=== PATIENT | male | born 1965 | race Caucasian/White ===

== ENCOUNTER 2025-05-05 18:36 | Inpatient (IN) | payer OTHER ==
[~2025-05-05] VITALS: Ht 205.7 cm; Wt 85.0 kg
[2025-05-05] MEDS ORDERED: haloperidol lactate 5mg/ml inj IM PRN (18:55)
[2025-05-05 19:06] LABS: MEAN PLATELET VOLUME 7.3 FL (7.4-10.4); RED CELL DISTRIBUTION WIDTH 14.3 % (11.5-14.5)
[2025-05-05 19:15] LABS: CREATININE 0.81 MG/DL (0.60-1.10); TOTAL CARBON DIOXIDE 23.2 MMOL/L (24-32); eCRCL 106 ML/MIN; eGFR > 90 ML/MIN
[2025-05-05 19:17] LABS: LEUKOCYTE ESTERASE ,URINE NEGATIVE (Neg); NITRITES, URINE NEGATIVE (Neg); OCCULT BLOOD,URINE SMALL (Neg)
[2025-05-05 19:20] LABS: UA COLLECTION TYPE CLN CATCH MIDSTREAM
--- NOTE | 2025-05-05 19:28 | Physician Documentation ---
History of Present Illness ~ Chief Complaint: ETOH Stated Complaint: TRANSFER Time Seen by MD: 19:00 Mode of Arrival: EMS HPI Patient presents to the emergency room sent from [facility] for alcohol withdrawal. Patient presented to their emergency room for evaluation of blacking out and musculoskeletal pain from falling off a ladder a proximally a week ago. Patient began having DTs or in his visit at the emergency room to the point where he needed to be admitted and that has seemed that his withdrawal symptoms were escalating to the point that he had not feel that he would be safe at their facility therefore sent to our facility. Tetanus within 5 years?: Yes Medication Reconciliation Allergies: Coded Allergies: naproxen (Verified Allergy, Mild, ITCHING, 05/05/25) Review of Systems ROS All review of systems negative except as per HPI Physical Exam Vital Signs: Temperature: 98.2, Source: Oral, Heart Rate: 110, Respiratory Rate: 18, BP: 187/100, Pulse Oximetry: 99, Weight: 85.000 Physical Exam General: Patient is sleeping comfortably, arousable in no acute distress. No tremors Head: Normocephalic and atraumatic. Eyes: Conjunctival normal. EOMI. PERRL. ENT: Mucous membranes moist. Neck: Supple, trachea is midline. Chest: Clear to auscultation bilaterally without rales, rhonchi, or wheezes. There is no accessory muscle use or retractions. Cardiac: Heart rate 98 and regular without murmurs, gallops, or rubs. Abd: Soft, nondistended, nontender, with normoactive bowel sounds. No guarding, rebound, or rigidity. Progress Results/Orders Results/Orders Orders - WILMER SPANGLER MD Severe Alcohol Withdrawl Reflx (05/05/25 ) Lorazepam Inj (Ativan Inj) (05/05/25 18:55) Lorazepam Inj (Ativan Inj) (05/05/25 18:55) Haloperidol Lact. (Haldol) (05/05/25 18:55) * Withdrawal Tx/Call If:* (05/05/25 18:51) * Implement/Maintain Seizure P (05/05/25 18:51) Director Motion Picture (05/05/25 18:51) Ua W/Microscopic, Cult If Ind (05/05/25 18:58) Completed Orders - WILMER SPANGLER MD Cbc/Diff (05/05/25 18:42) BMP (05/05/25 18:42) Lipase (05/05/25 18:42) CMP (05/05/25 18:42) Vital Signs 05/05/25 05/05/25 18:42 18:47 Temp 98.2 Pulse 110 Resp 18 18 B/P (MAP) 187/100 Pulse Ox 99 Laboratory Tests Test 05/05/25 18:47 05/05/25 18:58 White Blood Count 6.5 Red Blood Count 4.79 Hemoglobin 14.3 Hematocrit 41.2 L Mean Corpuscular Volume 86.0 Mean Corpuscular Hemoglobin 29.9 Mean Corpuscular Hemoglobin Concent 34.8 Red Cell Distribution Width 14.3 Platelet Count 175 Mean Platelet Volume 7.3 L Neutrophils (%) (Auto) 73.3 Lymphocytes (%) (Auto) 20.4 L Monocytes (%) (Auto) 5.4 Eosinophils (%) (Auto) 0.1 Basophils (%) (Auto) 0.8 Neutrophils # (Auto) 4.8 Lymphocytes # (Auto) 1.3 Monocytes # (Auto) 0.4 Eosinophils # (Auto) 0.0 Basophils # (Auto) 0.1 CBC Comment Sodium Level 134 L Potassium Level 4.1 Chloride Level 101 Carbon Dioxide Level 23.2 L Anion Gap 10 Blood Urea Nitrogen 9 Creatinine 0.81 Estimated GFR/1.73 m2 > 90 BUN/Creatinine Ratio 11.1 Glucose Level 88 Calcium Level 8.1 L Total Bilirubin 0.5 Aspartate Amino Transf (AST/SGOT) 49 H Alanine Aminotransferase (ALT/SGPT) 45 Alkaline Phosphatase 84 Total Protein 7.4 Albumin 3.9 Globulin 3.5 Albumin/Globulin Ratio 1.1 Lipase 24 Chemistry Comments Urine Specimen Description Cln catch midstream Urine Color Straw Urine Clarity Clear Urine pH 6.0 Urine Specific [place] <=1.005 Urine Protein Negative Urine Glucose (UA) Negative Urine Ketones Negative Urine Occult Blood Small Urine Nitrite Negative Urine Bilirubin Negative Urine Urobilinogen 0.2 Urine Leukocyte Esterase Negative Volume Urine Centrifuged 10 ml Urine Comment Medical Decision Making Findings Patient presented to the emergency room for alcohol withdrawal. Symptoms are controlled at this time and he had not feel he requires ICU admission. Differential Dx:Considerations: Include: Intoxication-Alcohol, Intoxication- Other drug, Personality disorder, Substance abuse disorder, Closed head injury Departure Admitted to Inpatient Unit: yes, to hospitalist Impression: Primary Impression: Alcohol withdrawal syndrome Condition: Guarded Referrals: NO PRIMARY CARE PROVIDER (PCP) Critical Care Note Total Time (mins): 45 Critical Care Note The very real possibility of a deterioration of this patient's condition required the highest level of my preparedness for sudden, emergent intervention. I provided critical care services, which included medication orders, frequent reevaluations of the patient's condition and response to treatment, ordering and reviewing test results, and discussing the case with various consultants. Excludes time spent performing separately billable procedures. The critical care time associated with the care of the patient was 45 minutes not counting procedures Signature Scribe Signature: No scribe Attestation: The note accurately reflects work and decisions made by me.Wilmer Spangler MD 05/05/25 19:28 WILMER SPANGLER MD May 05, 2025 19:28
[2025-05-05 19:46] LABS: SQUAMOUS EPITHELIAL CELL,UR NONE SEEN /LPF (FEW)
[2025-05-05] MEDS ORDERED: ondansetron/PF 4mg/2ml inj IV PRN (19:50)
[2025-05-05] MEDS ORDERED: magnesium sulf-water 4G/100mL 100 ML IV PRN (19:50)
[2025-05-05] MEDS ORDERED: potassium Cl 40MEQ/1/2NS 520ml 520 ML IV PRN (19:50)
[2025-05-05] MEDS ORDERED: magnesium sulf-water 2g/50mL 50 ML IV PRN (19:50)
[2025-05-05] MEDS ORDERED: mag hydrox/Alum hydrox/simeth 30ml oral suspension PO PRN (19:50)
[2025-05-05] MEDS ORDERED: magnesium hydroxide 30ml (MOM) UD suspension PO PRN (19:50)
[2025-05-05] MEDS ORDERED: magnesium Cl slow-release 64mg tablet PO PRN (19:50)
[2025-05-05] MEDS ORDERED: potassium Cl 20 mEq SR tablet PO PRN (19:50)
[2025-05-05] MEDS: docusate sod 100mg capsule PO SCH (20:00)
[2025-05-05] MEDS: K and/or MAG REPLACEMENT MC SCH (20:00)
[2025-05-05] MEDS: heparin, porcine 5000 units/ml vial SQ SCH (20:00)
[2025-05-05 20:01] LABS: ETHANOL 35 MG/DL (<10)
[2025-05-05] MEDS ORDERED: TAMSULOSIN (20:06)
[2025-05-05] MEDS ORDERED: METO25TA6 PO (20:06)
[2025-05-05] MEDS ORDERED: AMLO2.5T5 PO (20:06)
[2025-05-05] MEDS ORDERED: ATOR-2 PO (20:06)
[2025-05-05 20:14] LABS: URINE AMPHETAMINE SCREEN NEGATIVE (Neg); URINE BARBITUATE SCREEN NEGATIVE (Neg); URINE BENZODIAZEPINES SCREEN NEGATIVE (Neg); URINE CANNABINOID SCREEN NEGATIVE (Neg); URINE COCAINE SCREEN NEGATIVE (Neg); URINE METHADONE SCREEN NEGATIVE (Neg); URINE OPIATE SCREEN NEGATIVE (Neg); URINE PHENCYCLIDINE SCREEN NEGATIVE (Neg)
--- NOTE | 2025-05-05 20:56 | ELECTROCARDIOGRAPH REPORT ---
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
--- NOTE | 2025-05-05 21:01 | HISTORY AND PHYSICAL-Residence ---
History & Physical Providers to CC Resident Creating Document: AMY OMALLEY RES ~ History of Present Illness Reason for Admit\Complaint: Alcohol withdrawal History of Present Illness This is a 59-year-old male with past medical history of hypertension, CAD status post PTCA who was transferred from [facility] in view of alcohol withdrawal. He gives history of binge alcohol consumption, 30 beers a day since last 1 week. He was sober for 5 years before this episode and relapsed 2 months ago, he was again sober for 1 month before this episode. He complains of feeling shaky since yesterday. He also gives history of falls 6-7 times in the past 1 week which was preceded by dizziness and lightheadedness while he was drunk. No history of chest pain, palpitation, weakness before the fall. No history of seizure-like activity, hallucinations. He also complains of bitemporal bandlike headache, /, nonradiating. Allergies: Coded Allergies: naproxen (Verified Allergy, Mild, ITCHING, 05/05/25) Home Medications Home Medications Active Reported [Tamsulosin] 0.4 Cap Metoprolol Tartrate 25 Mg Tablet 1 Tab PO DAILY Atorvastatin Calcium 80 Mg Tablet 1 Tab PO DAILY Amlodipine Besylate 2.5 Mg Tablet 1 Tab PO DAILY Past Medical History Past Medical History Hypertension CAD status post PTCA Past Surgical History Surgical History Comment Hernioplasty for left-sided inguinal hernia PTCA in 2013 Past Social History Smoking: Quit greater than 1 year (Quit smoking more than 10 years ago. Used to smoke 1 pack of cigarettes a day before 10 years.) Alcohol Use: Abuse (Relapsed after 5 years. 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[employer]) Domestic Violence: Neg ROS Constitutional: Reports: weakness Eyes: Reports: no symptoms reported Respiratory: Reports: no symptoms reported Cardiovascular: Reports: no symptoms reported Gastrointestinal: Reports: no symptoms reported, abdominal pain Genitourinary: Reports: no symptoms reported Male Genitalia: Reports: no symptoms reported Neurological: Reports: no symptoms reported Musculoskeletal: Reports: no symptoms reported Integumentary: Reports: no symptoms reported Allergic/Immunologic: Reports: no symptoms reported Hematologic/Lymphatic: Reports: no symptoms reported Endocrine: Reports: no symptoms reported Psychiatric: Reports: no symptoms reported Exam Vitals: Vital Signs Date Time Temp Pulse Resp B/P (MAP) Pulse Ox O2 Delivery O2 Flow Rate FiO2 05/05/25 20:24 103 16 171/99 (123) 97 0 05/05/25 18:42 98.2 General: General: Drowsy, well oriented, not confused, not agitated, not in acute distress, well cooperated during the physical. HEENT: Conjunctive are pink, sclerae clear, no icterus, pupil is equal in both sides, reactive to light, no ear discharge, no pharyngeal erythema or an edema. Neck: Supple, no JVD, no lymphadenopathy and thyromegaly. Chest: Equal air entry on both lungs, no added sounds, no wheeze. Cardiovascular: S1-S2 regular sinus rhythm and, regular rate, no gallops, no rubs, no murmurs Abdomen: No visible peristalsis, Bowel sounds present on auscultation, soft, nontender, no guarding, no rigidity Extremities: No obvious deformities, no pitting edema bilaterally, capillary refill intact, peripheral pulsations are intact on both sides, tremors in bilateral hand even at rest. Central Nervous System: No focal neurological deficits, no motor or sensory weakness in all 4 extremities, could move all 4 extremities, 2+ deep tendon reflexes, negative Babinski. Musculoskeletal: No joint swelling, deformities, inflammations, and no scoliosis and back tenderness Skin: Warm and dry. Diagnostic Data Last Recorded Lab Results: 05/05/25184605/05/251846 Counseling Services Smoking & Tobacco Cessation: N/A Advance Care Planning Advanced Care plannin - 30 Minutes (Full code) Additional Plan Assessment: This is a 59-year-old male with past medical history of hypertension, CAD status post PTCA who was transferred [facility] from in view of alcohol withdrawal. Plan: Severe alcohol withdrawal CIWA score 19 No seizure-like activity, no hallucination Used to drink 30 beers a a day Vitals: Heart rate 110s, blood pressure 180/100 Liver function tests in the normal range, Lipase 24, sodium 134 potassium 4.1 Urine tox negative , ethyl alcohol level 35 Patient on severe alcohol withdrawal protocol Ordered social service and substance abuse consultation. Ordered PT INR, monitor vitals. Multiple ground level falls Preceded by dizziness when he was intoxicated Ordered CT head to rule out bleed, x-ray pelvis to rule out fracture Patient is able to bear full weight on his limbs Pain management with [facility] Primary Hypertension Coronary artery disease status post PTCA Missed a few doses of his antihypertensive medication in the last week Blood pressure 180/100, heart rate 110s Plan: Ordered EKG and echo rule out alcohol-induced cardiomyopathy Continue his home medication amlodipine 2.5 mg p.o. daily, metoprolol 25 mg p.o. daily, atorvastatin 80 mg p.o. daily. BPH Continue his home medication tamsulosin 0.4 mg p.o. daily Code status: Full code DVT prophylaxis: SCDs, heparin 5000 units q.8h Analgesia/sedation: Morphine/[facility] Line/tube: PIV GI prophylaxis: Protonix Nutrition: Heart healthy PT: Ordered. Prognosis: Guarded Disposition: Admit to PCU/telemetry, look out for alcohol-induced seizures, ordered social service and substance abuse navigator Amy Omalley MD PGY1, Internal Medicine [facility] Date of Service: May 05, 2025 Billing Provider: ANTHONY RIVERA MD, SHIVANI, RES May 05, 2025 21:01
[2025-05-05 21:03] LABS: CHOL/HDL RATIO 1.8 (0.00-4.99); LDL CHOLESTEROL 57 MG/DL (50-100)
--- NOTE | 2025-05-05 21:07 | RADIOLOGY REPORT ---
EXAM: CT CT HEAD INDICATION: Falls TECHNIQUE: CT images of the head were obtained without administration of IV contrast. CT scans at this facility use dose modulation, iterative reconstruction, and/or weight based dosing when appropriate to reduce radiation dose to as low as reasonably achievable. COMPARISON: None FINDINGS: PARENCHYMA: No acute hemorrhage. There is no mass effect, midline shift, or herniation. There is preservation of the barrow white differentiation. Mild scattered hypoattenuation along the periventricular, centrum semiovale, and deep white matter tracts, which are nonspecific however statistically most likely represent chronic microvascular ischemic change. VENTRICLES: No hydrocephalus. EXTRA-AXIAL SPACES: No extra-axial fluid collections. OTHER: The bony structures are intact. Visualized portions of the paranasal sinuses and mastoid air cells are clear. IMPRESSION: 1. No CT evidence of an acute intracranial abnormality. 2. Mild chronic microvascular ischemic change.
--- NOTE | 2025-05-05 21:24 | RADIOLOGY REPORT ---
EXAM: DI PELVIS,LIMITED 1-2 VIEWS INDICATION: Fall TECHNIQUE: 1 views of the pelvis COMPARISON: None FINDINGS/IMPRESSION: No radiographic evidence of an acute osseous abnormality. There is no acute fracture, osseous malalignment, or aggressive focal osseous lesion. Moderate to severe bilateral superior medial hip joint space loss.
[2025-05-05] MEDS: thiamine 100mg/ml 2ml inj. IV SCH (23:04)
[2025-05-05 23:40] VITALS: BP 166/105; PULSE 90; RESP 12; TEMP 98.9; O2SAT 99
[2025-05-06] MEDS: diazepam inj 5 MG/ML inj. IV PRN ×2 (00:21→16:43)
[2025-05-06 02:00] VITALS: BP 162/104; PULSE 94; RESP 19; TEMP 97.8; O2SAT 97
[2025-05-06 02:13] VITALS: RESP 12; O2SAT 99
[2025-05-06 07:01] LABS: MEAN PLATELET VOLUME 7.6 FL (7.4-10.4); RED CELL DISTRIBUTION WIDTH 14.2 % (11.5-14.5)
[2025-05-06 07:10] LABS: INR 1.0 INR
[2025-05-06 07:21] LABS: CREATININE 0.66 MG/DL (0.60-1.10); TOTAL CARBON DIOXIDE 24.8 MMOL/L (24-32); eCRCL 143 ML/MIN; eGFR > 90 ML/MIN
[2025-05-06] MEDS: folic acid 1mg/0.2ml inj IV SCH (08:00)
[2025-05-06] MEDS ORDERED: TAMS-55 PO (10:17)
[2025-05-06] MEDS: pantoprazole 40mg Tablet.DR PO SCH (10:17)
[2025-05-06] MEDS: multivitamins, therapeutics tablet PO SCH (10:18)
[2025-05-06] MEDS: hydrALAZINE 20mg/ml inj. IV PRN (13:34)
--- NOTE | 2025-05-06 17:22 | RADIOLOGY REPORT ---
INDICATION: BACK PAIN TECHNIQUE: 4 views of the thoracic and lumbar spine were obtained. COMPARISON: None FINDINGS: There is no evidence of fracture, subluxation and/or dislocation. Degenerative disc space narrowing at L5-S1. Suggestion of neural foraminal stenosis at L5-S1. The alignment is anatomical. The paravertebral soft tissues were unremarkable. Vascular calcifications of the aorta. IMPRESSION: 1. Of the visualized spine, there is no evidence for fracture or subluxation.
--- NOTE | 2025-05-06 17:27 | PROGRESS NOTE- Residence ---
Progress Note - Resident Providers to CC Resident Creating Document: RAFAEL GOINS, RES ~ Antibiotic Timeout Antibiotic Ordered?: No Subjective This is a 59-year-old male, transferred from [facility], reports that he fell down on Friday on the way to restroom he felt dizzy lightheadedness had chest pain and lost consciousness, he regained consciousness after a few minutes He he said that he had couple of drinks before he lost consciousness but was not drunk He also fell from ladder last week he he went to hospital and he received pain meds and was discharged, however he said that his pain was not controlled and he started drinking which was improving his pain. Patient was little bit confused and drowsy when I went to see him. Objective Vital Signs Date Time Temp Pulse Resp B/P (MAP) Pulse Ox O2 Delivery O2 Flow Rate FiO2 05/06/25 16:43 16 05/06/25 13:34 77 05/06/25 02:13 99 Room Air 05/06/25 02:00 97.8 162/104 (123) 05/05/25 20:24 0 Result Diagram: 05/06/25 0632 05/06/25 0632 General: awake, alert oriented to place, time, and person, confused and drowsy. HEENT: No pallor present, no icterus, moist mucous membranes Neck: No masses and tenderness Resp: Unlabored. Lungs clear to auscultation bilaterally. Chest: Normal expansion. Cardiovascular: Regular Rate and rhythm, normal S1 and S2 without murmur, rub or gallop Abdomen: Soft and non tender in epigastrium, no organomegaly, no guarding and rigidity, bowel sounds present Neuro: No focal weakness in the upper and lower limb muscles, power of the muscles 5/5 bilateral upper and lower extremities, normal reflexes bilaterally. Cranial nerves intact Extremities: No cyanosis,clubbing or edema Musculoskeletal: No joint deformities, no back tenderness. Skin: Warm and Dry. No lesions Psych: Normal affect Coagulation Studies Laboratory Tests Test 05/06/25 06:32 Prothrombin Time 9.9 SECONDS (9.0-12.0) INR International Normalized Ratio 1.0 INR Coagulation Comments Plan Plan Assessment: This is a 59-year-old male with past medical history of hypertension, CAD status post PTCA who was transferred [facility] from in view of alcohol withdrawal. Plan: Severe alcohol withdrawal CIWA score 19 improved CIWA 9 points. No seizure-like activity, no hallucination Used to drink 30 beers a a day Blood pressure 152/92 Liver function test, AST 49 and ALT 45 Lipase 24, sodium 136 potassium 4.1 Urine tox negative , ethyl alcohol level 35. Patient on severe alcohol withdrawal protocol PT 9.9, INR 1.0 Ordered social service and substance abuse consultation. Multiple ground level falls Preceded by dizziness when he was intoxicated Ordered CT head shows IMPRESSION: 1. No CT evidence of an acute intracranial abnormality. 2. Mild chronic microvascular ischemic change. Pelvis X-Ray No radiographic evidence of an acute osseous abnormality. There is no acute fracture, osseous malalignment, or aggressive focal osseous lesion. Moderate to severe bilateral superior medial hip joint space loss. Thoracic spine x ray: there is no evidence for fracture or subluxation Lumar Spine X-Ray: there is no evidence for fracture or subluxation. Patient is able to bear full weight on his limbs Pain management with [facility] Primary Hypertension Coronary artery disease status post PTCA Missed a few doses of his antihypertensive medication in the last week Blood pressure 180/100 bp improved to 153/92. Changed amlodipine from 2.5 to 5 mg, continue metoprolol 25 mg p.o. daily, atorvastatin 80 mg p.o. daily. Echo shows: Overall systolic function is normal. LVEF is 55%. BPH Continue his home medication tamsulosin 0.4 mg p.o. daily Code status: Full code DVT prophylaxis: heparin Analgesia/sedation: Morphine/[facility] Line/tube: PIV GI prophylaxis: Protonix Nutrition: Heart healthy PT: Ordered. Prognosis: Guarded Disposition: Admit to PCU/telemetry, look out for alcohol-induced seizures, Monitor blood pressure and vitals. ordered social service and substance abuse navigator. Rafael Goins PGY1 Internal Medicine Date of Service: May 06, 2025 Billing Provider: ALONDRA FLEMING MD,RAFAEL, RES May 06, 2025 17:27
[2025-05-06 18:00] VITALS: BP 128/80; PULSE 86; RESP 18; TEMP 98; O2SAT 94
[2025-05-06 18:30] VITALS: O2SAT 97
--- NOTE | 2025-05-06 19:18 | CARDIOLOGY REPORT ---
APPROVED REPORT EXAM: Comprehensive 2D, Doppler, and color-flow Echocardiogram. Patient Location: 302 Blood Pressure: 162/104 mmHg Heart Rate: 77 bpm Indications Cardiomyopathy Coronary Artery Disease Stent x 1 (2007 - per patient) Alcohol Withdrawals PIGMENT AND LACQUER MIXER: (Unknown, out of the area per patient) NO Previous ECHO 2D Dimensions LA Diam 2.9 cm IVSd 0.8 (0.7-1.1cm) LVDd 4.7 cm PWd 0.7 (0.7-1.1cm) IVSs 0.9 (0.8-1.2cm) LVDs 3.5 (2.5-4.0cm) PWs 1.2 (0.8-1.2cm) LVOT Diameter 2.17 (1.8-2.4cm) LVEF(%) 51.1 (>50%) IVC 14.26 mm FS (%) 26.0 % SV 51.4 ml CO 3.8 L/min M-Mode Dimensions Left Atrium(MM) 3.70 (2.5-4.0cm) Aortic Root 3.78 (2.2-3.7cm) MV EPSS 0.4 (<0.5cm) Aortic Valve AoV Peak Godwin. 100.8 cm/s AoV VTI 23.0 cm AO Peak GR. 4.1 mmHg AO Mean GR. 3 mmHg LVOT VTI 18.98 cm LVOT Peak Godwin. 94.8 cm/s CARMEN(VTI)/BSA 3.04 cm2/m2 CARMEN (VTI) 3.04 cm2 AI P 1/2 Time 508 ms Mitral Valve MV E Velocity 50.0 cm/s MV Peak Gr. 1 mmHg MV DECEL TIME 204 ms MV A Velocity 82.2 cm/s MV PHT 44 ms E/A Ratio 0.6 MVA (PHT) 5.00 cm2 MV VMax 55.1 cm/s TDI Lateral E' P. V 10.18 cm/s E/Lateral E' 4.9 Tricuspid Valve TR P. Velocity 222 cm/s RAP ESTIMATE 10 mmHg TR Peak Gr. 20 mmHg RVSP 30 mmHg LEFT VENTRICLE Normal LV size and wall thickness. Overall systolic function is normal. LVEF is 55%. RIGHT VENTRICLE RV is normal size and function. ATRIA The left atrium size is normal. AORTIC VALVE Trileaflet AV appears mildly sclerotic without stenosis. Mild insufficiency. MITRAL VALVE Mitral valve leaflets are mildly thickened with mild annular calcification. No stenosis. Trace regurgitation. TRICUSPID VALVE The tricuspid valve is normal in structure with trace regurgitation. PULMONIC VALVE Pulmonic valve is grossly normal in structure with physiologic insufficiency. GREAT VESSELS The aortic root is normal in size. The IVC is normal in size and collapses >50% with inspiration. PERICARDIUM Normal pericardium. No effusion. Other Information Study Quality: Adequate Conclusion Normal LV size and wall thickness. Overall systolic function is normal. LVEF is 55%. RV is normal size and function. The left atrium size is normal. Trileaflet AV appears mildly sclerotic without stenosis. Mild insufficiency. Mitral valve leaflets are mildly thickened with mild annular calcification. No stenosis. Trace regurgitation. The tricuspid valve is normal in structure with trace regurgitation. Pulmonic valve is grossly normal in structure with physiologic insufficiency. Normal pericardium. No effusion.
[2025-05-06 20:00] VITALS: BP_SYST 119; BP_SYST 143; BP_SYST 151; BP_DIAS 53; BP_DIAS 65; BP_DIAS 83; PULSE 104; PULSE 71
[2025-05-06] MEDS: HYDROcodone/acetaminophen 5mg/325mg tablet PO PRN (20:44)
[2025-05-06 22:00] VITALS: BP 119/83; PULSE 104; RESP 21; TEMP 97; O2SAT 96
[2025-05-07] VITALS (9 sets, daily range): BP systolic 105–157; BP diastolic 42–88; PULSE 65–96; RESP 11–18; TEMP 97.1–98; O2SAT 97–99
[2025-05-07] MEDS: normal saline 500ml IV soln 500 ML IV SCH (05:26)
[2025-05-07 07:18] LABS: MEAN PLATELET VOLUME 8.5 FL (7.4-10.4); RED CELL DISTRIBUTION WIDTH 14.2 % (11.5-14.5)
[2025-05-07 07:32] LABS: INR 1.0 INR
[2025-05-07 07:53] LABS: CREATININE 0.88 MG/DL (0.60-1.10); TOTAL CARBON DIOXIDE 24.0 MMOL/L (24-32); eCRCL 107 ML/MIN; eGFR 88 ML/MIN
[2025-05-07] MEDS: normal saline 1000ml 1,000 ML IV ONE (09:31)
[2025-05-07] MEDS: potassium Cl 20 mEq SR tablet PO PRN (09:31)
[2025-05-07] MEDS: HYDROcodone/acetaminophen 10/325mg tab PO PRN (09:34)
[2025-05-07] MEDS: aspirin 81mg, enteric-coated 1 TAB TABLET.DR PO SCH (09:44)
[2025-05-07] MEDS: metoprolol succinate 25mg (24-HOUR) SR. Tablet PO SCH (09:45)
--- NOTE | 2025-05-07 11:52 | VASCULAR REPORT ---
Carotid duplex REASON FOR EXAM: Dizziness A Carotid Duplex Study was performed. TECHNIQUE: Harvey scale, color doppler imaging and spectral analysis were performed. FINDINGS: On harvey scale and color imaging there is mild plaquing seen in both carotid bulbs Velocities are as follows: (measured in cm/S): Right CCA 1 78 Left CCA 129 Right ICA 101 Left ICA 81 Right ICA/CCA 0.56 Left ICA/CCA 0.63 Flow in the vertebral arteries is antegrade. IMPRESSION: 1. No hemodynamically significant stenosis based on NASCET criteria Minimal plaquing seen in both carotid bulbs
--- NOTE | 2025-05-07 14:55 | RADIOLOGY REPORT ---
CLINICAL INDICATION: Syncope. Rule out CVA. COMPARISON: CT CT HEAD on DOS: 05/05/25, CT BRAIN/HEAD W/O CONTRAST on DOS: 05/05/25 TECHNIQUE: Multisequence multiplanar MRI images of the brain were obtained without contrast. FINDINGS: No acute infarct or hemorrhage. No mass or midline shift. Chronic lacunar infarct in the right basal ganglia. Ventricles and sulci are within normal limits. Basal cisterns are patent. Cerebellum, brainstem, and midline structures are within normal limits. Mild mucosal thickening of the paranasal sinuses. Orbits are grossly unremarkable. IMPRESSION: 1. No evidence of acute intracranial abnormality. 2. Nonacute findings as described above.
--- NOTE | 2025-05-07 18:26 | PROGRESS NOTE- Residence ---
Progress Note - Resident Providers to CC Resident Creating Document: CLAIRE WOODS RES ~ Antibiotic Timeout Antibiotic Ordered?: No Subjective Patient seen and examined today. He feels better today. He is walking to the restroom but feels dizzy. Mentions that he feels dizzy usually when he walks but also when he sits. Had a fall few days back but mentioned that he was not drunk back then. Did not have any falls before that but was dizzy Objective Vital Signs Date Time Temp Pulse Resp B/P (MAP) Pulse Ox O2 Delivery O2 Flow Rate FiO2 05/07/25 16:10 97.6 65 16 105/72 (83) 99 Room Air 05/05/25 20:24 0 Result Diagram: 05/07/2520 05/07/25 0620 General: Alert and oriented x 4 HEENT: Normocephalic and atraumatic. Pupils equal round and reactive to light and accommodation. Extraocular movements intact. Oral and nasal mucosa moist Neck: Trachea is in midline. No masses or JVD Lungs: Bilateral normal breath sounds. No crackles, rhonchi or wheezes Heart: Regular rate and rhythm. S1-S2 normal. No rubs or murmurs Abdomen: Soft, nontender and nondistended. 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 Not able to elevate his left lower extremity due to back pain Skin: Warm and dry Coagulation Studies Laboratory Tests Test 05/07/25 06:20 Prothrombin Time 9.8 SECONDS (9.0-12.0) INR International Normalized Ratio 1.0 INR Coagulation Comments Assessment Assessment This is a 59-year-old male with past medical history of hypertension, CAD status post PTCA who was transferred [facility] from in view of alcohol withdrawal. Plan Plan Severe alcohol withdrawal CIWA score 19 improved to CIWA1 points. Continue alcohol withdrawal protocol Continue thiamine, folic acid, multivitamin Received 25 mg IV diazepam in the last 24 hours Dizziness and multiple falls and sometimes losing consciousness Chronic lacunar infarct in the right basal ganglia Positive orthostatic vitals Given 1 L normal saline bolus. Started normal saline at 100 cc/hour. Will recheck orthostatics in a.m. and we will start midodrine if remains positive Head CT showed no evidence of acute intracranial abnormalities. Mild chronic microvascular ischemic change Bilateral carotid ultrasound showed no significant stenosis Head MRI showed no acute intracranial abnormality. Chronic lacunar infarct in right basal ganglia Echocardiogram showed LVEF 55% with no other significant wall or valvular abnormalities Continue aspirin 81 mg p.o. daily. LDL 57. Started Lipitor 40 mg p.o. daily Pending EEG Back pain after the fall Pelvis x-ray showed no acute abnormality. Moderate to severe bilateral superior medial hip joint space loss Thoracic and lumbar Lumbar spine x-ray showed no acute fracture or subluxation. Degenerative disc space narrowing at L5-S1 suggesting of neural foraminal stenosis at L5-S1. Vascular calcifications of the aorta Pain controlled with [place] PT recommended home independent Coronary artery disease status post PTCA Continue aspirin 81 mg p.o. daily and metoprolol succinate 25 mg p.o. daily Started Lipitor 40 mg p.o. daily Hypertension Mild hyponatremia Continue amlodipine 5 mg p.o. daily Continue normal saline at 100 cc/hour Hypokalemia Continue replacement as per protocol Magnesium within normal limits BPH Continue his home medication tamsulosin 0.4 mg p.o. daily Patient wants to continue to use tamsulosin and stated that he finds it difficult to initiate urination if he has stopped taking tamsulosin for 4-5 days Code status: Full code DVT prophylaxis: heparin 5000 units subcu q.12h Analgesia/sedation: Morphine/[place] p.r.n. Line/tube: PIV GI prophylaxis: Protonix Nutrition: Heart healthy PT: Ordered. Prognosis: Guarded Disposition: Possible discharge in a.m.. Follow up with the EEG. Check orthostatic vitals in a.m. and start midodrine if still positive Date of Service: May 07, 2025 Billing Provider: ALONDRA FLEMING MD, MANOJNA RES May 07, 2025 18:26
[2025-05-08 02:00] VITALS: BP 133/77; PULSE 74; RESP 16; TEMP 97.8; O2SAT 97
[2025-05-08 06:42] LABS: MEAN PLATELET VOLUME 7.9 FL (7.4-10.4); RED CELL DISTRIBUTION WIDTH 14.5 % (11.5-14.5)
[2025-05-08 06:48] LABS: INR 0.9 INR
[2025-05-08 07:02] LABS: CREATININE 0.95 MG/DL (0.60-1.10); TOTAL CARBON DIOXIDE 27.5 MMOL/L (24-32); eCRCL 99 ML/MIN; eGFR 81 ML/MIN
[2025-05-08 07:09] VITALS: BP 148/83; PULSE 82; RESP 16; TEMP 97.7; O2SAT 98
[2025-05-08 08:00] VITALS: RESP 16
[2025-05-08 08:10] VITALS: RESP 16; O2SAT 99
--- NOTE | 2025-05-08 09:15 | PROCEDURE NOTE ---
Procedure Note Providers to CC ~ Interpretation: [place] EEG Note # Demographics Type of EEG Read: - Routine EEG - video Patient Location: - Inpatient - STAT read requested First Name: Yuan Last Name: Monty Date of : 1965 Age: 59 Gender: Male Facility: [facility] Time of Initial Page (): 05/08/2025 08:13 First Contact with Site (): 05/08/2025 08:21 # EEG Interpretation Start Time of EEG Read (): 05/08/2025 08:33 Stop Time of EEG Read (): 05/08/2025 08:54 Duration: 0h 21m Technical Details: - The EEG electrodes were placed using the standard International 10-20 system of electrode placement. Video and an accessory EKG lead were used during the course of this study. - This study was recorded using the dotHIV EEG software Indication: - seizure # Description Photic Stimulation: Performed Hyperventilation: performed Phases Captured: - awake - drowsy Symmetry: symmetric Posterior Dominant Rhythm: - present, attenuates on eye opening 9 Hz Predominant Frequencies: - non-posterior dominant alpha (8-12 Hz) - abundant (50-89%) Superimposed Frequencies: - beta (>15 Hz) - frequent (10-49%) Amplitude: normal Reactivity: yes Variability: yes Continuity: continuous # Abnormalities Stimulation: - photic stimulation does NOT cause abnormalities - hyperventilation does NOT cause abnormalities Epileptiform Abnormalities: - NOT present Focal Slowing: no Seizure: - NOT present # Impression Impression: abnormal 1. Excess Beta # Clinical Correlation Clinical Correlation: Excess beta is a non-specific finding but may be seen in the setting of Benzodiazepine or Barbiturate use # Demographics First Name: Yuan Last Name: Monty Facility: [facility] VIVIANE GONZALES MD May 08, 2025 09:15
[2025-05-08 09:21] VITALS: BP_SYST 111; BP_SYST 131; BP_SYST 135; BP_DIAS 68; BP_DIAS 77; PULSE 82; PULSE 86
[2025-05-08] MEDS ORDERED: THIA50TA10 PO (10:01)
[2025-05-08] MEDS ORDERED: FOLI0.4T3 PO (10:01)
[2025-05-08] MEDS ORDERED: METO-395 PO (10:01)
[2025-05-08] MEDS ORDERED: AMLO2.5T5 PO (10:01)
[2025-05-08] MEDS ORDERED: PANT40TA54 PO (10:01)
[2025-05-08] MEDS ORDERED: MULT-25 PO (10:01)
[2025-05-08] MEDS ORDERED: ASPI-1071 PO (10:01)
[2025-05-08 11:00] VITALS: BP_SYST 136; BP_SYST 139; BP_DIAS 79; BP_DIAS 82; PULSE 78; PULSE 79; RESP 14; RESP 79; TEMP 97.2; TEMP 97.3; O2SAT 95; O2SAT 99
--- NOTE | 2025-05-08 20:27 | DISCHARGE SUMMARY-Residence ---
Discharge Summary Providers to CC Resident Creating Document: CLAIRE WOODS RES ~ Discharge Summary Admission Diagnosis: ALCOHOL WITHDRAWAL Hospital Course DATE OF ADMISSION: 05/05/2025 DATE OF DISCHARGE: 05/08/2025 As in HPI: This is a 59-year-old male with past medical history of hypertension, CAD status post PTCA who was transferred from [facility] in view of alcohol withdrawal. He gives history of binge alcohol consumption, 30 beers a day since last 1 week. He was sober for 5 years before this episode and relapsed 2 months ago, he was again sober for 1 month before this episode. He complains of feeling shaky since yesterday. He also gives history of falls 6-7 times in the past 1 week which was preceded by dizziness and lightheadedness while he was drunk. No history of chest pain, palpitation, weakness before the fall. No history of seizure-like activity, hallucinations. He also complains of bitemporal bandlike headache, 5/10, nonradiating. During the hospital stay, he was treated for severe alcohol withdrawal with thiamine, folic acid, Valium p.r.n.. His CIWA score came down to one. He was initially positive for orthostatic vitals but recovered after good IV hydration. His repeat orthostatics were negative at this morning. His multiple falls recently likely due to alcohol abuse and positive orthostatics. Advised him to keep himself well hydrated with a about at least 2 L of fluid per day. He wanted to continue to take tamsulosin as he feels that he will not be able to urinate if he does not take the medication for three days. So, continue tamsulosin. He also complains of back pain after the fall and requested for a return to work form. I signed a return to work form - return to modified work on 05/12/2025. 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 His head CT also showed chronic lacunar infarct and so started on aspirin and also Lipitor 40 mg p.o. daily. He has coronary artery stenting was few years back. Physical therapy recommended home independent. Today, he is stable for discharge back to home. Stated that he wants to live in his truck for few days and then we will go back to his house in [place]. General: Alert and oriented x 4 HEENT: Normocephalic and atraumatic. Pupils equal round and reactive to light and accommodation. Extraocular movements intact. Oral and nasal mucosa moist Neck: Trachea is in midline. No masses or JVD Lungs: Bilateral normal breath sounds. No crackles, rhonchi or wheezes Heart: Regular rate and rhythm. S1-S2 normal. No rubs or murmurs Abdomen: Soft, nontender and nondistended. 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 Not able to elevate his left lower extremity due to back pain Skin: Warm and dry Discharge instructions: Please follow up with the PCP within a week after discharge. Strongly recommend to avoid alcohol. Please come back to the ER if symptoms recur. Check your blood pressure twice daily and hold metoprolol as in the past systolic blood pressure less than 100 mmHg or heart rate less than 60 mmHg. Please keep yourself well hydrated-at least 2 L of water per day. Hold tamsulosin if systolic blood pressure less than 100 mmHg. Discharge Diagnosis\Comment: Severe alcohol withdrawal Dizziness and falls likely due to positive orthostatic hypotension Chronic lacunar infarct in the right basal ganglia Back pain after the fall but no acute fracture Coronary artery disease-s/p PTCA Hypotension Mild hyponatremia Hypokalemia BPH Operations\Procedures: None Consultants: None Complications: None Condition on DC: Stable New Medications: Folic Acid (FOLIC ACID tablet) 0.4 Mg Tablet 1 TAB PO DAILY for 30 Days, #30 TAB 0 Refills Thiamine HCl (Vitamin B-1) 50 Mg Tablet 2 TAB PO DAILY for 30 Days, #60 TAB 0 Refills Aspirin (Ecotrin*) 81 Mg Tablet.dr 1 TAB PO DAILY for 30 Days, #30 TAB.SR Metoprolol Succinate (Metoprolol Succinate) 25 Mg Tab.sr.24h 25 MG PO DAILY for 30 Days, #30 TAB.SR Multivitamin with Folic Acid (Thera Tablet) 400 Mcg Tablet 1 EACH PO Q24H for 30 Days, #30 TAB Pantoprazole Sodium (Pantoprazole Sodium) 40 Mg Tablet.dr 40 MG PO BKF for 30 Days, #30 TAB.SR Changed Medications: Amlodipine Besylate (Amlodipine Besylate) 2.5 Mg Tablet 2 TAB PO DAILY for 30 Days, #60 TAB (Changed from: 1 TAB) Continued Medications: Atorvastatin Calcium (Atorvastatin Calcium) 80 Mg Tablet 1 TAB PO DAILY Tamsulosin Hcl* (Flomax*) 0.4 Mg Cap.sr.24h 1 CAP PO DAILY for 30 Days, #30 CAP Discontinued Medications: Metoprolol Tartrate (Metoprolol Tartrate) 25 Mg Tablet 1 TAB PO DAILY Discharge Summary: As above *Problems/Diagnosis: (1) Alcohol withdrawal syndrome Status: Acute Total Time Spent on D/C: > 30 Minutes Date of Service: May 08, 2025 Billing Provider[facility] May 08, 2025 20:21
== END 2025-05-08 13:20 | disposition home or self-care (01) | DRG 312 ==
LOC: ER 18:38 → PCU 3S 19:50
PROVIDERS: ADMIT Internal Medicine Pulmonary Disease; ATTEND Family Medicine
PROC: 4A00X4Z Measurement of Central Nervous Electrical Activity, External Approach (ICD-10-PCS; principal; 2025-05-08)
DX: I95.1 Orthostatic hypotension (principal); E87.1 Hypo-osmolality and hyponatremia; F10.139 Alcohol abuse with withdrawal, unspecified; Y90.1 Blood alcohol level of 20-39 mg/100 ml; M54.9 Dorsalgia, unspecified; I25.10 Atherosclerotic heart disease of native coronary artery without angina pectoris; E87.6 Hypokalemia; N40.0 Benign prostatic hyperplasia without lower urinary tract symptoms; I70.0 Atherosclerosis of aorta; I10 Essential (primary) hypertension; W11.XXXA Fall on and from ladder, initial encounter; Y93.89 Activity, other specified; Y92.89 Other specified places as the place of occurrence of the external cause; Y99.8 Other external cause status; Z86.73 Personal history of transient ischemic attack (TIA), and cerebral infarction without residual deficits; Z95.5 Presence of coronary angioplasty implant and graft; Z88.8 Allergy status to other drugs, medicaments and biological substances; Z79.899 Other long term (current) drug therapy; Z87.891 Personal history of nicotine dependence
CPT/HCPCS: 36415; 70450; 70551; 72074; 72110; 72170; 80053; 80061; 80305; 80320; 81001; 82150; 82607; 82948; 83036; 83690; 83735; 84443; 85025; 85610; 87081; 93005; 93306; 93880; 95816; 96374; 97116; 97161; 99291; G0378; J0360; J1644; J2060; J2470; J3360; J3411; J3490; J7030; J7040

== ENCOUNTER 2025-05-13 10:18 | Inpatient (IN) | payer OTHER ==
[~2025-05-13] VITALS: Ht 175.3 cm; Wt 64.0 kg
[~2025-05-13 10:18] MED LIST: AMLO2.5T5 PO; ASPI-1071 PO; ATOR-2 PO; FOLI0.4T3 PO; METO-395 PO; MULT-25 PO; PANT40TA54 PO; TAMS-55 PO; THIA50TA10 PO
[2025-05-13] MEDS ORDERED: AMLO2.5T2 PO (11:05)
[2025-05-13] MEDS ORDERED: MULT-25 PO (11:05)
[2025-05-13] MEDS ORDERED: FOLI0.4T6 PO (11:05)
[2025-05-13] MEDS ORDERED: THIA50TA10 PO (11:05)
[2025-05-13] MEDS ORDERED: ASPI-1265 PO (11:05)
[2025-05-13] MEDS ORDERED: METO-539 PO (11:05)
[2025-05-13 11:06] LABS: MEAN PLATELET VOLUME 7.1 FL (7.4-10.4)
[2025-05-13 11:08] LABS: RED CELL DISTRIBUTION WIDTH 15.3 % (11.5-14.5)
[2025-05-13 11:12] LABS: LEUKOCYTE ESTERASE ,URINE NEGATIVE (Neg); NITRITES, URINE NEGATIVE (Neg); OCCULT BLOOD,URINE SMALL (Neg)
[2025-05-13 11:14] LABS: UA COLLECTION TYPE CLN CATCH MIDSTREAM
[2025-05-13 11:20] LABS: CREATININE 0.70 MG/DL (0.60-1.10); TOTAL CARBON DIOXIDE 22.6 MMOL/L (24-32); eCRCL 102 ML/MIN; eGFR > 90 ML/MIN
[2025-05-13 11:23] LABS: MUCUS STRANDS NONE SEEN /LPF (Neg); SQUAMOUS EPITHELIAL CELL,UR FEW /LPF (FEW)
[2025-05-13 11:25] LABS: URINE AMPHETAMINE SCREEN NEGATIVE (Neg); URINE BARBITUATE SCREEN NEGATIVE (Neg); URINE BENZODIAZEPINES SCREEN POSITIVE (Neg); URINE CANNABINOID SCREEN NEGATIVE (Neg); URINE COCAINE SCREEN NEGATIVE (Neg); URINE METHADONE SCREEN NEGATIVE (Neg); URINE OPIATE SCREEN NEGATIVE (Neg); URINE PHENCYCLIDINE SCREEN NEGATIVE (Neg)
--- NOTE | 2025-05-13 11:27 | Physician Documentation ---
History of Present Illness General Chief Complaint: ETOH Stated Complaint: ETOH WITHDRAWAL Time Seen by MD: 11:12 Primary Medical Doctor: TIARA AT [facility] IN [place] Mode of Arrival: EMS History of Present Illness Initial Comments The patient is a 59-year-old male with a history of alcohol use disorder whose last drink was yesterday morning. He is transferred here from [facility] for treatment of his alcohol withdrawal. He has no history of s eizures. His CIWA score on arrival is 17. Medication Reconciliation Allergies: Coded Allergies: naproxen (Verified Allergy, Mild, ITCHING, 05/05/25) fluoride (Verified Allergy, Unknown, VOMIT, 05/13/25) Uncoded Allergies: PEANUTS (Allergy, Unknown, ANAPHALAXIS, 05/13/25) Scheduled Amlodipine* (Norvasc*), 2 TAB PO DAILY, (Reported) Aspirin (Aspirin), 1 TAB PO DAILY, (Reported) Atorvastatin Calcium (Atorvastatin Calcium), 1 TAB PO DAILY, (Reported) Folic Acid* (Folic Acid*), 1 TAB PO DAILY, (Reported) Metoprolol Succinate* (Toprol Xl*), 1 TAB PO DAILY, (Reported) Multivitamin with Folic Acid (Thera Tablet), 1 TAB PO DAILY, (Reported) Tamsulosin Hcl* (Flomax*), 1 CAP PO DAILY, (Reported) Thiamine HCl (Vitamin B-1), 2 TAB PO DAILY, (Reported) Discontinued Medications Amlodipine Besylate (Amlodipine Besylate), 2 TAB PO DAILY Discontinued Reason: patient no longer taking Aspirin (Ecotrin*), 1 TAB PO DAILY Discontinued Reason: patient no longer taking Folic Acid (FOLIC ACID tablet), 1 TAB PO DAILY Discontinued Reason: patient no longer taking Metoprolol Succinate (Metoprolol Succinate), 25 MG PO DAILY Discontinued Reason: patient no longer taking Metoprolol Tartrate (Metoprolol Tartrate), 1 TAB PO DAILY, (Reported) Multivitamin with Folic Acid (Thera Tablet), 1 EACH PO Q24H Discontinued Reason: patient no longer taking Pantoprazole Sodium (Pantoprazole Sodium), 40 MG PO BKF Discontinued Reason: patient no longer taking Thiamine HCl (Vitamin B-1), 2 TAB PO DAILY Discontinued Reason: patient no longer taking [Tamsulosin], (Reported) Discontinued Reason: Prescription changed Past Medical History Smoking: Quit greater than 1 year Alcohol Use: Abuse Drug Use: marijuana Lives with: Family Lives In: Home Occupation: employed Review of Systems ROS Constitutional: Denies chills, fatigue, fever, weight gain or weight loss. HEENT: Denies hearing loss, sinus pressure or visual changes. Respiratory: Denies cough, shortness of breath or wheezing. Cardiovascular: Denies chest pain, pain while walking (claudication), edema or palpitations. Gastrointestinal: Denies abdominal pain, blood in stool, constipation, diarrhea, heartburn, loss of appetite, nausea or vomiting. Genitourinary: Denies painful urination (dysuria), excessive amount of urine (polyuria) or urinary frequency. Metabolic/Endocrine: Denies cold intolerance, heat intolerance, excessive thirst (polydipsia) or excessive hunger (polyphagia). Neurological: Tremulous Psychiatric: Anxiety Integumentary: Denies breast discharge, breast lump, hives, mole change(s), rash or skin lesion. Musculoskeletal: Denies back pain, joint pain, joint swelling or neck pain. Hematologic: Denies easily bleeding, easily bruises, lymphedema or issues with blood clots. Immunologic: Denies food allergies or seasonal allergies. Physical Exam Physical Exam Vital Signs: Temperature: 98.9, Source: Oral, Heart Rate: 125, Respiratory Rate: 18, BP: 173/108, Pulse Oximetry: 98, Weight: 64.000 Oxygen Flow Rate: 0 Physical Exam Physical Exam Vitals and nursing note reviewed. Constitutional: General: Patient is awake, alert, oriented x 4 in no acute distress and well appearing. Speech is clear and lucid. Appearance: Normal appearance. Patient is not ill-appearing, toxic-appearing or diaphoretic. HENT: Head: Normocephalic and atraumatic. Mouth/Throat: Mouth: Mucous membranes are moist. Pharynx: Oropharynx is clear. Eyes: General: No scleral icterus. Extraocular Movements: Extraocular movements intact. Pupils: Pupils are equal, round, and reactive to light. Neck: Supple, no Kernig or Brudzinski sign. Cardiovascular: Rate and Rhythm: Normal rate and regular rhythm. Heart sounds: No murmur heard. Pulmonary: Effort: No respiratory distress. Breath sounds: No wheezing, rhonchi or rales. Abdominal: General: There is no distension. Palpations: There is no fluid wave, hepatomegaly or mass. Tenderness: There is no abdominal tenderness. There is no guarding. Musculoskeletal: General: No swelling or deformity. Skin: Coloration: Skin is not jaundiced. Findings: No erythema or rash. Neurological: Mental Status: Patient is alert and coherent but tremulous. CIWA score 17. Progress Results/Orders Results/Orders Orders - SUSSY PEARCE MD Store Meds In Pharmacy (Store Meds In Ph (05/13/25 11:25) Page Hospitalist (05/13/25 13:41) Completed Orders - SUSSY PEARCE MD Cbc/Diff (05/13/25 10:53) BMP (05/13/25 10:53) Lipase (05/13/25 10:53) CMP (05/13/25 10:53) Drug Screen, Urine (05/13/25 10:53) Lacticsepsis (05/13/25 10:53) Ua W/Microscopic, Cult If Ind (05/13/25 10:40) Normal Saline 1000ml (0.9% Sodium Chlori (05/13/25 11:20) Phenobarbital Inj (Phenobarbital Inj.) (05/13/25 11:20) Ethanol (05/13/25 11:27) Electrocardiogram (05/13/25 10:26) Acetaminophen 1,000mg/100ml Iv (Ofirmev (05/13/25 13:15) Medications Received in ER Medications (Trade) Dose Ordered Sig/Maggie Route PRN Reason Start Time Stop Time Status Last Admin Dose Admin Sodium Chloride 1,000 ml @ 1,000 mls/hr ONCE ONCE IV 05/13/25 11:20 05/13/25 12:19 DC 05/13/25 11:42 1,000 MLS/HR Phenobarbital Sodium 260 mg/ Sodium Chloride 102 ml @ 204 mls/hr ONCE STAT IV 05/13/25 11:20 05/13/25 11:49 DC 05/13/25 12:04 204 MLS/HR Acetaminophen 100 ml @ 400 mls/hr ONCE ONCE IV 05/13/25 13:15 05/13/25 13:29 DC 05/13/25 13:25 400 MLS/HR Vital Signs 05/13/25 05/13/25 05/13/25 05/13/25 10:30 10:30 11:15 12:30 Temp 98.9 Pulse 125 114 124 Resp 19 18 16 17 B/P (MAP) 173/108 160/108 (125) 148/88 (108) Pulse Ox 98 98 96 O2 Flow Rate 0 0 0 05/13/25 13:28 Pulse 118 Resp 19 B/P (MAP) 157/86 (109) Pulse Ox 98 O2 Flow Rate 0 Laboratory Tests Test 05/13/25 10:29 05/13/25 10:40 05/13/25 10:56 White Blood Count 6.0 Red Blood Count 4.28 L Hemoglobin 12.9 L Hematocrit 37.8 L Mean Corpuscular Volume 88.4 Mean Corpuscular Hemoglobin 30.1 Mean Corpuscular Hemoglobin Concent 34.0 Red Cell Distribution Width 15.3 H Platelet Count 242 Mean Platelet Volume 7.1 L Neutrophils (%) (Auto) 62.3 Lymphocytes (%) (Auto) 22.6 Monocytes (%) (Auto) 11.3 Eosinophils (%) (Auto) 1.0 Basophils (%) (Auto) 2.8 H Neutrophils # (Auto) 3.7 Lymphocytes # (Auto) 1.4 Monocytes # (Auto) 0.7 Eosinophils # (Auto) 0.1 Basophils # (Auto) 0.2 CBC Comment Sodium Level 140 Potassium Level 4.1 Chloride Level 105 Carbon Dioxide Level 22.6 L Anion Gap 12 Blood Urea Nitrogen 6 L Creatinine 0.70 Estimated GFR/1.73 m2 > 90 BUN/Creatinine Ratio 8.6 L Glucose Level 79 Lactic Acid Level 1.9 Calcium Level 8.3 L Total Bilirubin 0.4 Aspartate Amino Transf (AST/SGOT) 68 H Alanine Aminotransferase (ALT/SGPT) 83 H Alkaline Phosphatase 88 Total Protein 6.5 Albumin 3.3 L Globulin 3.2 Albumin/Globulin Ratio 1.0 L Lipase 29 Chemistry Comments Ethyl Alcohol Level 96 H Urine Specimen Description Cln catch midstream Urine Color Yellow Urine Clarity Clear Urine pH 6.0 Urine Specific [place] 1.020 Urine Protein Negative Urine Glucose (UA) Negative Urine Ketones Negative Urine Occult Blood Small Urine Nitrite Negative Urine Bilirubin Negative Urine Urobilinogen 0.2 Urine Leukocyte Esterase Negative Urine RBC 3-10 Urine WBC 0-4 Urine Squamous Epithelial Cells Few Urine Bacteria None seen Urine Mucus None seen Urine Culture Indicated Not ind Volume Urine Centrifuged 10 ml Urine Comment Urine Opiates Screen Negative Urine Methadone Screen Negative Urine Fentanyl Screen Negative Urine Barbiturates Screen Negative Urine Phencyclidine Screen Negative Urine Amphetamines Screen Negative Urine Benzodiazepines Screen Positive Urine Cocaine Screen Negative Urine Cannabinoids Screen Negative Drug Screen Comment Glucometer 84 Medical Decision Making Findings This 59-year-old man with a history of alcohol use disorder arrives with a CIWA score of 17. His last drink was yesterday morning (beer). I am starting him on phenobarbital in fluids and will get him admitted. Departure Disposition: ADMITTED INPATIENT Admission Level of Care: Neuro with Tele Impression: Primary Impression: Alcohol withdrawal syndrome Condition: Stable Referrals: NO PRIMARY CARE PROVIDER (PCP) Signature Scribe Signature: . Attestation: . SUSSY PEARCE MD May 13, 2025 11:27
[2025-05-13] MEDS: normal saline 1000ml 1,000 ML IV ONE (11:42)
--- NOTE | 2025-05-13 12:49 | ELECTROCARDIOGRAPH REPORT ---
[facility] Test Date: 2025-05-13 Test Time: 10:26:05 Pat Name: GERONIMO LOVE Department: EMERGENCY ROOM Room: Gender: M Infection Control Nurse: MICHAEL : 1965 Requested By: SUSSY PEARCE Order Number: [id number] Reading MD: Measurements Intervals [place] Rate: 109 P: 68 AK: 164 QRS: 45 QRSD: 94 T: 60 QT: 321 QTc: 433 Interpretive Statements Atrial-paced complexes Please click the below link to view image of tracing.
[2025-05-13] MEDS: acetaminophen 1,000mg/100ml IV 100 ML IV ONE (13:25)
[2025-05-13] MEDS ORDERED: magnesium sulf-water 2g/50mL 50 ML IV PRN (14:00)
[2025-05-13] MEDS ORDERED: magnesium Cl slow-release 64mg tablet PO PRN (14:00)
[2025-05-13] MEDS ORDERED: potassium Cl 20 mEq SR tablet PO PRN (14:00)
[2025-05-13] MEDS ORDERED: magnesium hydroxide 30ml (MOM) UD suspension PO PRN (14:00)
[2025-05-13] MEDS ORDERED: potassium Cl 40MEQ/1/2NS 520ml 520 ML IV PRN (14:00)
[2025-05-13] MEDS ORDERED: magnesium sulf-water 4G/100mL 100 ML IV PRN (14:00)
[2025-05-13] MEDS ORDERED: HYDROmorphone/PF 0.2 MG/ML SYRINGE IV PRN (14:00)
[2025-05-13] MEDS ORDERED: dextrose 50%-water 50ml dispensing syringe IV PRN (14:05)
[2025-05-13] MEDS ORDERED: haloperidol lactate 5mg/ml inj IM PRN (14:05)
[2025-05-13] MEDS: ondansetron/PF 4mg/2ml inj IV ONE (14:39)
--- NOTE | 2025-05-13 14:52 | HISTORY AND PHYSICAL-Residence ---
History & Physical Providers to CC Resident Creating Document: RAFAEL GOINS RES CC: ALONDRA FLEMING MD ~ History of Present Illness Primary Medical Doctor: TIARA AT [facility] IN [place] Reason for Admit\Complaint: Alcohol withdrawl History of Present Illness This is a 59-year-old male with past medical history of alcohol use disorder, hypertension, CAD s/p stent transferred [facility] for further management of alcohol withdrawal. He had eight beers last night and fell last night, reports that he hit his head did not lose consciousness and before the fall he was feeling dizzy and lightheaded. He says that he was not drunk. He also reports that he feel weak, abdominal pain eight 8/10 radiating to both legs. In addition to that he said that he is feeling cold, shaky, feverish and eyes are scabby since 2 days, due to that he reports that he can not open his eyes completely, he reports that he received drops at [facility] now they are much better. Patient reports that he also experience urinary incontinence somes after fall from ladder. He has been taking tamsulosin since two years. Apart from that he also reports that he had history of fall from the ladder 1 week ago and due to that he has back pain. He was recently discharged from [facility] on 08 of May for alcohol withdrawal, he said that after discharge he quit alcohol 1-2 days but started drinking again for back pain. Patient reports that last night he fell before that he drunk eight cans of beer hit his head, did not lose consciousness, before the fall he was dizzy and lightheaded, after the fall ambulance and was taken to [facility] as Allergies: Coded Allergies: naproxen (Verified Allergy, Mild, ITCHING, 05/05/25) fluoride (Verified Allergy, Unknown, VOMIT, 05/13/25) Uncoded Allergies: PEANUTS (Allergy, Unknown, ANAPHALAXIS, 05/13/25) Home Medications Home Medications Active Reported Vitamin B-1 (Thiamine HCl) 50 Mg Tablet 2 Tab PO DAILY 30 Days Thera Tablet (Multivitamin with Folic Acid) 400 Mcg Tablet 1 Tab PO DAILY 30 Days Toprol Xl* (Metoprolol Succinate) 25 Mg Tab.sr.24h 1 Tab PO DAILY 30 Days Folic Acid* (Folic Acid) 0.4 Mg Tablet 1 Tab PO DAILY 30 Days Aspirin 81 Mg Tab.chew 1 Tab PO DAILY 30 Days Norvasc* (Amlodipine Besylate) 2.5 Mg Tablet 2 Tab PO DAILY 30 Days Flomax* (Tamsulosin HCl) 0.4 Mg Cap.sr.24h 1 Cap PO DAILY 30 Days Atorvastatin Calcium 80 Mg Tablet 1 Tab PO DAILY Past Medical History Past Medical History Hypertension Coronary artery disease s/p stent Past Surgical History Surgical History Comment Coronary artery disease s/p stent Family History Family History: FH: hypertension (father) Type 2 diabetes mellitus (mother) Past Social History Social History Comment Quit Smoking 10 years ago before that used to smoke one pack a day Has been drinking alcohol since 30 years 6-10 beers a day, 5 years he remained alcohol free denies other illicit drug use history Alcohol Use: Abuse Lives with: Family ROS ROS CONSTITUTIONAL: Reports fever , chills. No dizziness. No weakness, No weight gain or Loss. EYES: No pain, erythema, or discharge. No blurring of vision. ENT: No sore throat, No epistaxis. No tinnitus. CARDIOVASCULAR: No chest pain, chest pressure, chest discomfort. no palpitations or syncope. No lower extremity edema. No paroxysmal nocturnal dyspnea. RESPIRATORY: No shortness of breath, No cough, No hemoptysis. No dyspnea. GASTROINTESTINAL: Normal appetite. reports nausea, no vomiting,no diarrhea. No constipation. No hematemesis. reports abdominal pain. No bloating. No melena or fresh blood. GENITOURINARY: No frequency, urgency, nocturia. No hematuria or dysuria, reports urinary incontinence MUSCULOSKELETAL: No arthralgias or myalgias. INTEGUMENTARY: no change in skin, hair, nails. No swelling. No bruising. No abrasions. NEUROLOGIC: reports headache and shakiness ,No neck pain. No numbness or tingling of the extremities. No weakness. PSYCHIATRIC: no delusions, no depression, no loss of interest in normal activity or change in sleep pattern, no hallucinations or suicidal ideations ENDOCRINE: No fatigue. No weakness. No polydipsia, polyuria, no change in appetite. no heat or cold intolerance, no ravinder, no dry skin. HEMATOLOGICAL: No bleeding. No petechiae. No bruising. ALLERGIES: No asthma. No urticaria. Exam Vitals: Vital Signs Date Time Temp Pulse Resp B/P (MAP) Pulse Ox O2 Delivery O2 Flow Rate FiO2 9/19/25 13:28 118 19 157/86 (109) 98 0 05/13/25 10:30 98.9 General: General: Awake and Alert, confused, drowsy, no acute distress. HEENT: Conjunctiva pink, Sclera clear, Mucus Membranes moist, greasy and crusted eyes. Neck: Supple without masses and tenderness. Resp: Unlabored. Lungs clear to auscultation bilaterally. Heart: Regular Rate and rhythm, normal S1 and S2 without murmur, rub or gallop. Abdomen: Soft and tender abdomen, no organomegaly, no guarding or rigidity. Bowel sounds present. Extremities: No cyanosis,clubbing or edema. Skin: Warm and Dry. Neurology: Cranial nerves 2-12 intact. No focal motor or sensory deficits Diagnostic Data Last Recorded Lab Results: 05/13/25 1029 05/13/25 1029 Advance Care Planning Advanced Care plannin - 30 Minutes (I Spent 17 minutes in discussing various resuscitative measures with the patient and he choose to be full code.) Additional Plan Patient was transferred from [facility] for further alcohol withdrawal management, admitting patient for alcohol withdrawal. Alcohol Use Disorder CIWA score 15 Patient's received one dose of phenobarbital 260 mg in ER. Patient is placed on moderate alcohol withdrawal. Patient experincing tremors UTox suggestive of alcohol Patient experienced a fall after drinking in view of that ordered CT Head which showed: No intracranial hemorrhage or mass effect. Mild chronic microvascular ischemic changes Substance abuse navigator consulted Coronary artery disease s/p Stent Continue aspirin 81 mg Started atorvastatin 80 mg Continue metoprolol succinate 25 mg Follow up with lipid panel Abnormal liver function tests possibly due to Alcohol use AST 68, ALT 83 Follow up with the AST ALT and ultrasound of abdomen Hypertension Continue amlodipine 5 mg Benign Prostatic Hyperplasia Continue tamsulosin 0.4 mg DVT prophylaxis: Lovenox Code status: Full code Diet: Regular diet GI prophylaxis: Pantoprazole DISPOSITION: This patient is readmit alcohol withdrawal, we will continue to monitor patient for alcohol withdrawal symptoms Patient is on moderate alcohol protocol. RAFAEL GOINS PGY 1 IM Date of Service: May 13, 2025 Billing Provider: ALONDRA FLEMING MD, SANJAY, MALKA May 13, 2025 14:52
--- NOTE | 2025-05-13 15:22 | RADIOLOGY REPORT ---
CT CT HEAD Indication: fall EXAM DATE: 05/13/2025 02:55 PM COMPARISON: MR MRI HEAD on DOS: 05/07/25, CT CT HEAD on DOS: 05/05/25, CT BRAIN/HEAD W/O CONTRAST on DOS: 05/05/25 TECHNIQUE: CT of the head without intravenous contrast. RADIATION DOSE: CTDIvol: 65 mGy, DLP: 1192 mGy*cm FINDINGS: There is no intracranial hemorrhage. There is no extra-axial fluid, mass, mass effect or midline shift. The ventricles are midline and normal in size. Basilar cisterns are patent. Are mild periventricular and subcortical matter chronic microvascular ischemic changes Mastoids well pneumatized. Mucosal thickening maxillary sinuses. Imaged portion of the orbits are unremarkable. IMPRESSION: No intracranial hemorrhage or mass effect. Mild chronic microvascular ischemic changes
[2025-05-13] MEDS: multivitamins, therapeutics tablet PO SCH (15:31)
[2025-05-13] MEDS: thiamine 100mg/ml 2ml inj. IV SCH (15:31)
[2025-05-13] MEDS: folic acid 1mg/0.2ml inj IV SCH (15:37)
[2025-05-13 18:00] VITALS: BP 172/108; PULSE 120; RESP 20; TEMP 98.2; O2SAT 96
[2025-05-13 18:55] LABS: CHOL/HDL RATIO 1.7 (0.00-4.99); LDL CHOLESTEROL 43 MG/DL (50-100)
[2025-05-13] MEDS: metoprolol succinate 25mg (24-HOUR) SR. Tablet PO ONE (19:10)
[2025-05-13] MEDS: metoprolol succinate 25mg (24-HOUR) SR. Tablet PO SCH (19:16)
[2025-05-13] MEDS: acetaminophen 325mg/10.15ml oral unit dose solution PO ONE (19:16)
[2025-05-13] MEDS: K and/or MAG REPLACEMENT MC SCH (20:00)
[2025-05-13] MEDS: docusate sod 100mg capsule PO SCH (20:14)
[2025-05-13] MEDS: HYDROcodone/acetaminophen 5mg/325mg tablet PO PRN (21:34)
[2025-05-13 22:00] VITALS: BP 166/100; PULSE 103; RESP 20; TEMP 98.1; O2SAT 96
[2025-05-13 22:53] VITALS: BP 172/102; PULSE 88; RESP 18; O2SAT 98
[2025-05-13] MEDS: hydrALAZINE 20mg/ml inj. IV ONE (23:04)
[2025-05-14] VITALS (8 sets, daily range): BP systolic 127–145; BP diastolic 65–85; PULSE 73–89; RESP 12–17; TEMP 97.2–98.3; O2SAT 93–98
[2025-05-14 06:24] LABS: MEAN PLATELET VOLUME 7.1 FL (7.4-10.4); RED CELL DISTRIBUTION WIDTH 14.7 % (11.5-14.5)
[2025-05-14 06:29] LABS: APTT 28 SECONDS (22-32); INR 1.0 INR
[2025-05-14 06:37] LABS: CREATININE 0.68 MG/DL (0.60-1.10); PHOSPHORUS 2.5 MG/DL (2.3-4.5); TOTAL CARBON DIOXIDE 25.9 MMOL/L (24-32); eCRCL 105 ML/MIN; eGFR > 90 ML/MIN
[2025-05-14] MEDS: ondansetron/PF 4mg/2ml inj IV PRN (07:17)
[2025-05-14] MEDS: enoxaparin 40mg/0.4ml syringe SUBCUT SCH (07:57)
[2025-05-14] MEDS: potassium Cl 20 mEq SR tablet PO PRN (08:12)
--- NOTE | 2025-05-14 08:18 | RADIOLOGY REPORT ---
INDICATION: abd pain TECHNIQUE: Multiple real-time sonographic images of the abdomen were obtained. COMPARISON: None FINDINGS: Liver is homogenous in echogenicity. The liver measures 15 cm. No intrahepatic biliary ductal dilatation is noted. The gallbladder wall measures 0.2 cm and is unremarkable. Gallbladder polyps are present measuring up to 0.4 cm. No pericholecystic fluid or edema. The common duct measures 0.3 cm and is unremarkable. The right kidney measures 11.5 cm. No hydronephrosis. The left kidney measures 12 cm. No hydronephrosis. The spleen measures 9.7 cm, within normal limits. The echogenicity is within normal limits. The pancreas is not well visualized due to obscuration from bowel gas. The visualized portions of the IVC and aorta are grossly unremarkable. IMPRESSION: Gallbladder polyps measuring up to 0.4 cm. FOLLOW UP RECOMMENDATIONS: Low-risk polyps (pedunculated with a thick or wide stalk, or sessile): < 6 mm: no follow-up 7-9 mm follow-up ultrasound at 12 months 10-14 mm: follow-up ultrasound at 6, 12, 24, and 36 months vs surgical consult > 15 mm: surgical consult Emmanuel Gerardo, Juan Jose Umana, Ashkan Gusman et al. Management of Incidentally Detected Gallbladder Polyps: Society of Radiologists in Ultrasound Consensus Conference Recommendations. Radiology. 2021;:[id number].
[2025-05-14] MEDS: mag hydrox/Alum hydrox/simeth 30ml oral suspension PO PRN (10:56)
[2025-05-14] MEDS: tobramycin 0.3% 5ml ophthalmic drops RIGHTEYE SCH (13:01)
[2025-05-14] MEDS ORDERED: ondansetron/PF 4mg/2ml inj IV PRN (17:15)
[2025-05-14] MEDS: magnesium sulf-water 2g/50mL 50 ML IV ONE (17:39)
[2025-05-14] MEDS: lactose-reduced food (Ensure Enlive) - 237ml bottle PO SCH (18:00)
[2025-05-14] MEDS: diazepam inj 5 MG/ML inj. IV PRN (20:11)
--- NOTE | 2025-05-14 20:23 | PROGRESS NOTE- Residence ---
Progress Note - Resident Providers to CC Resident Creating Document: RAFAEL GOINS RES ~ Antibiotic Timeout Antibiotic Ordered?: No Subjective Patient was seen and examined at bedside, he reports mild headache and abdominal pain. Reports nausea, but no vomitting. Objective Vital Signs Date Time Temp Pulse Resp B/P (MAP) Pulse Ox O2 Delivery O2 Flow Rate FiO2 05/14/25 13:00 98.3 73 14 133/74 (93) 97 Room Air 05/14/25 08:00 0.0 Result Diagram: 05/14/25 0548 05/14/25 0548 General: Awake and Alert, confused, drowsy, no acute distress. HEENT: Conjunctiva pink, Sclera clear, Mucus Membranes moist, greasy and crusted eyes improving Neck: Supple without masses and tenderness. Resp: Unlabored. Lungs clear to auscultation bilaterally. Heart: Regular Rate and rhythm, normal S1 and S2 without murmur, rub or gallop. Abdomen: Soft and tender abdomen, no organomegaly, no guarding or rigidity. Bowel sounds present. Extremities: No cyanosis,clubbing or edema. MSK:No joint deformities or backtenderness Skin: Warm and Dry. Neurology: Cranial nerves 2-12 intact. No focal motor or sensory deficits Coagulation Studies Laboratory Tests Test 05/14/25 05:48 Prothrombin Time 10.1 SECONDS (9.0-12.0) INR International Normalized Ratio 1.0 INR Activated Partial Thromboplast Time 28 SECONDS (22-32) Coagulation Comments Plan Plan This patient is transferred from [facility] for further management of alcohol withdrawal Alcohol Use Disorder/Alcohol withdrawal CIWA score improving today it is 8 Patient's received one dose of phenobarbital 260 mg in ER. Patient is placed on moderate alcohol withdrawal. Patient experincing tremors resolving Started patient on ondansetron for nausea. UTox suggestive of alcohol Patient experienced a fall after drinking in view of that ordered CT Head which showed: No intracranial hemorrhage or mass effect. Mild chronic microvascular ischemic changes Patient received 2 g magnesium IV in view of low normal mg. Substance abuse navigator consulted Coronary artery disease s/p Stent Continue aspirin 81 mg Continue atorvastatin 80 mg Continue metoprolol succinate 25 mg TG 46, cholesterol 142, LDL 43 Abnormal liver function tests possibly due to Alcohol use AST 68, ALT 83 Abdominal ultrasound shows Gallbladder polyps measuring up to 0.4 cm Amylase and lipase normal Crusting of eyes Ordered tobramycin drops Hypertension Continue amlodipine 5 mg Benign Prostatic Hyperplasia Continue tamsulosin 0.4 mg DVT prophylaxis: Lovenox Code status: Full code Diet: Regular diet GI prophylaxis: Switch pantoprazole IV to oral pantoprazole 40 mg Disposition: Patient will be possibly discharged tomorrow. Date of Service: May 14, 2025 Billing Provider: ALONDRA FLEMING MD, SANJAY, MALKA May 14, 2025 20:23
[2025-05-15 02:00] VITALS: BP 131/72; PULSE 82; RESP 1; TEMP 97.8; O2SAT 96
[2025-05-15 06:00] VITALS: BP 129/73; PULSE 82; RESP 14; TEMP 97.9; O2SAT 96
[2025-05-15 07:00] VITALS: RESP 15
[2025-05-15 07:14] LABS: MEAN PLATELET VOLUME 7.5 FL (7.4-10.4); RED CELL DISTRIBUTION WIDTH 15.0 % (11.5-14.5)
[2025-05-15 07:22] LABS: APTT 28 SECONDS (22-32); INR 1.0 INR
[2025-05-15 07:31] LABS: CREATININE 0.71 MG/DL (0.60-1.10); PHOSPHORUS 2.2 MG/DL (2.3-4.5); TOTAL CARBON DIOXIDE 25.3 MMOL/L (24-32); eCRCL 100 ML/MIN; eGFR > 90 ML/MIN
[2025-05-15] MEDS: pantoprazole 40mg Tablet.DR PO SCH (08:20)
[2025-05-15 11:24] VITALS: BP 129/73; PULSE 82; RESP 14; TEMP 97.9; O2SAT 96
[2025-05-15 11:30] VITALS: BP 123/72; PULSE 91; RESP 16; TEMP 97.1; O2SAT 98
[2025-05-15] MEDS: normal saline 500ml IV soln 500 ML IV ONE (12:08)
[2025-05-15] MEDS ORDERED: TOBR5DRO12 RIGHTEYE (12:34)
[2025-05-15] MEDS ORDERED: diazepam inj 5 MG/ML inj. IV PRN (14:05)
[2025-05-15] MEDS ORDERED: MIDO5TAB4 PO (14:56)
--- NOTE | 2025-05-15 20:21 | DISCHARGE SUMMARY-Residence ---
Discharge Summary Providers to CC Resident Creating Document: RAFAEL GOINS RES CC: ALONDRA FLEMING MD ~ Discharge Summary Admission Diagnosis: Alcohol withdrawl Hospital Course DATE OF ADMISSION: 05/13/25 DATE OF DISCHARGE: 05/15/25 Discharge Diagnosis\Comment: Alcohol Use Disorder Alcohol withdrawal Coronary artery disease s/p Stent Abnormal liver function tests possibly due to Alcohol use Crusting of eyes Hypertension Benign Prostatic Hyperplasia Operations\Procedures: None Consultants: None Complications: None Condition on DC: Stable New Medications: Midodrine HCl (Midodrine HCl) 5 Mg Tablet 1 TAB PO Q8H for 30 Days, #90 TAB 0 Refills Pantoprazole Sodium (Pantoprazole Sodium) 40 Mg Tablet.dr 40 MG PO BKF for 30 Days, #30 TAB.SR Tobramycin Sulfate 0.3% Opth.* (Tobrex 0.3% Opth.*) 5 Ml Bottle 1 DRP RIGHTEYE TID for 30 Days, #1 BOTTLE Continued Medications: Amlodipine* (Norvasc*) 2.5 Mg Tablet 2 TAB PO DAILY for 30 Days, #30 TAB Aspirin (Aspirin) 81 Mg Tab.chew 1 TAB PO DAILY for 30 Days, #30 TAB Atorvastatin Calcium (Atorvastatin Calcium) 80 Mg Tablet 1 TAB PO DAILY Folic Acid* (Folic Acid*) 0.4 Mg Tablet 1 TAB PO DAILY for 30 Days, #30 TAB Metoprolol Succinate* (Toprol Xl*) 25 Mg Tab.sr.24h 1 TAB PO DAILY for 30 Days, #30 TAB Multivitamin with Folic Acid (Thera Tablet) 400 Mcg Tablet 1 TAB PO DAILY for 30 Days, #30 TAB 0 Refills Tamsulosin Hcl* (Flomax*) 0.4 Mg Cap.sr.24h 1 CAP PO DAILY for 30 Days, #30 CAP Thiamine HCl (Vitamin B-1) 50 Mg Tablet 2 TAB PO DAILY for 30 Days, #60 TAB 0 Refills Discharge Summary: Hospital Course This is a 59-year-old male with past medical history of alcohol use disorder, hypertension, CAD s/p stent transferred from [facility] for further management of alcohol withdrawal.He had eight beers before he came to [facility] and had history of fall he also reports that he feel weak,abdominal pain 8/10 radiating to both legs, he was shaky,feeling cold, in view of that patient was treated for alcohol withdrawal he received phenobarbital 260 mg in addition to that he was he was placed on moderate alcohol withdrawal protocol ,Utox was positive for alcohol ,in view of his fall CT head was performed which showed No intracranial hemorrhage or mass effect. Mild chronic microvascular ischemic changes, CIWA score on day of admission was 15 which was improved significantly on day of discharge. During hospitalization his CIWA score was 15 the day of admission which was improved significantly. Substance use navigator was consulted He was also treated for hypertension with amlodipine 5 mg and BPH with tamsulosin 0.5 mg. When he presented to his arms his eyes were crusting and for that he received tobramycin drops. During during hospitalization he was also dizzy and lightheaded for which he received 500 mL bolus NS which improved her symptoms significantly In view of his coronary artery disease s/p stent we continued aspirin 81, statin 81 mg and metoprolol succinate 25 mg He also had abnormal liver function tests possibly due to chronic alcohol use. Apart from that was also dizzy and lightheaded during hospitalization for which he received 500 mL bolus NS which improved her symptoms significantly For BPH he was treated with tamsulosin 0.5 mg. Patient was medically stable for discharge and was counseled for alcohol cessation. For GI prophylaxis received pantoprazole and for DVT prophylaxis patient received Lovenox. Patient was medically stable for discharge and was counseled for alcohol cessation. Physical Examination General: awake, alert oriented to place, time, and person HEENT: No pallor present, no icterus, moist mucous membranes Crusting of eyes improved significantly. Neck: No masses and tenderness Resp: Unlabored. Lungs clear to auscultation bilaterally. Chest: Normal expansion. Cardiovascular: Regular Rate and rhythm, normal S1 and S2 without murmur, rub or gallop Abdomen: Soft and nontender in epigastrium, no organomegaly, no guarding and rigidity, bowel sounds present Neuro: No focal weakness in the upper and lower limb muscles, power of the muscles 5/5 bilateral upper and lower extremities, normal reflexes bilaterally. Cranial nerves intact Extremities: No cyanosis,clubbing or edema Skin: Warm and Dry. Psych: Normal affect Vital Signs Date Time Temp Pulse Resp B/P (MAP) Pulse Ox O2 Delivery O2 Flow Rate FiO2 05/15/25 11:30 97.1 91 16 123/72 (89) 98 Room Air 05/15/25 07:00 0.0 Laboratory Tests Test 05/13/25 21:55 05/14/25 05:48 05/14/25 10:22 05/15/25 06:36 Glucometer 144 mg/dl 137 mg/dl White Blood Count 6.2 X10'3 7.7 X10'3 Red Blood Count 4.25 X10'6 4.09 X10'6 Hemoglobin 12.8 g/dl 12.4 g/dl Hematocrit 36.9 % 36.0 % Mean Corpuscular Volume 86.9 FL 88.0 FL Mean Corpuscular Hemoglobin 30.1 PG 30.2 PG Mean Corpuscular Hemoglobin Concent 34.6 g/dL 34.4 g/dL Red Cell Distribution Width 14.7 % 15.0 % Platelet Count 265 X10'3 231 X10'3 Mean Platelet Volume 7.1 FL 7.5 FL Neutrophils (%) (Auto) 55.9 % 63.0 % Lymphocytes (%) (Auto) 23.2 % 24.4 % Monocytes (%) (Auto) 16.3 % 9.3 % Eosinophils (%) (Auto) 2.2 % 2.3 % Basophils (%) (Auto) 2.4 % 1.0 % Neutrophils # (Auto) 3.5 X10'3 4.8 X10'3 Lymphocytes # (Auto) 1.4 X10'3 1.9 X10'3 Monocytes # (Auto) 1.0 X10'3 0.7 X10'3 Eosinophils # (Auto) 0.1 X10'3 0.2 X10'3 Basophils # (Auto) 0.2 X10'3 0.1 X10'3 CBC Comment Prothrombin Time 10.1 SECONDS 9.8 SECONDS INR International Normalized Ratio 1.0 INR 1.0 INR Activated Partial Thromboplast Time 28 SECONDS 28 SECONDS Coagulation Comments Sodium Level 134 MMOL/L 136 MMOL/L Potassium Level 3.3 MMOL/L 3.9 MMOL/L Chloride Level 99 MMOL/L 102 MMOL/L Carbon Dioxide Level 25.9 MMOL/L 25.3 MMOL/L Anion Gap 9 9 Blood Urea Nitrogen 8 MG/DL 4 MG/DL Creatinine 0.68 MG/DL 0.71 MG/DL Estimated GFR/1.73 m2 > 90 ML/MIN > 90 ML/MIN BUN/Creatinine Ratio 11.8 5.6 Glucose Level 118 MG/DL 125 MG/DL Calcium Level 8.3 MG/DL 8.0 MG/DL Phosphorus Level 2.5 MG/DL 2.2 MG/DL Magnesium Level 1.7 MG/DL 2.1 MG/DL Total Bilirubin 0.8 MG/DL 0.6 MG/DL Aspartate Amino Transf (AST/SGOT) 49 U/L 50 U/L Alanine Aminotransferase (ALT/SGPT) 68 U/L 62 U/L Alkaline Phosphatase 93 IU/L 86 IU/L Total Protein 6.8 G/DL 6.4 G/DL Albumin 3.3 G/DL 3.0 G/DL Globulin 3.5 G/DL 3.4 G/DL Albumin/Globulin Ratio 0.9 0.9 Amylase Level 37 U/L 38 U/L Chemistry Comments Imaging Head CT: IMPRESSION: No intracranial hemorrhage or mass effect. Mild chronic microvascular ischemic changes Abdominal US: Gallbladder polyps measuring up to 0.4 cm. Discharge instructions Strongly recommend to quit alcohol. Please eye drop in your right eye - one drop every 8 hours. Check your blood pressure twice daily and hold metoprolol if the systolic blood pressure less than 100 mmHg or heart rate less than 60 mmHg. Hold tamsulosin if systolic blood pressure less than 100 mmHg. Please keep yourself well hydrated-at least 2 L of water per day. Please follow up with the PCP within a week after discharge. Please come back to the ER if symptoms recur. Please do not drive when you drink alcohol *Problems/Diagnosis: (1) Alcohol withdrawal syndrome Status: Resolved Total Time Spent on D/C: > 30 Minutes Date of Service: May 15, 2025 Billing Provider: ALONDRA FLEMING MD, SANJAY, MAKLA May 15, 2025 20:21
[2025-05-17] MEDS ORDERED: diazepam inj 5 MG/ML inj. IV PRN (14:05)
== END 2025-05-15 14:09 | disposition home or self-care (01) | DRG 897 ==
LOC: ER 10:19 → ED HOLD 14:04 → PCU 3S 16:10
PROVIDERS: ADMIT Family Medicine; ATTEND Family Medicine
DX: F10.139 Alcohol abuse with withdrawal, unspecified (principal); I10 Essential (primary) hypertension; I25.10 Atherosclerotic heart disease of native coronary artery without angina pectoris; N40.0 Benign prostatic hyperplasia without lower urinary tract symptoms; F13.10 Sedative, hypnotic or anxiolytic abuse, uncomplicated; R23.4 Changes in skin texture; Z88.8 Allergy status to other drugs, medicaments and biological substances; Z95.5 Presence of coronary angioplasty implant and graft; Z91.018 Allergy to other foods; Z87.891 Personal history of nicotine dependence; Y90.4 Blood alcohol level of 80-99 mg/100 ml
CPT/HCPCS: 36415; 70450; 76700; 80053; 80061; 80305; 80320; 81001; 82150; 82948; 83605; 83690; 83735; 84100; 85025; 85610; 85730; 87081; 93005; 96365; 97161; 97530; 99285; A6258; G0378; J0131; J0360; J1650; J2405; J2470; J2560; J3360; J3411; J3490; J7030; J7040; J7070